=== PATIENT | female | born 1960 | race Caucasian/White ===

== ENCOUNTER 2017-06-11 13:26 | Emergency (ER) | payer BC, OTHER ==
[2017-06-11 13:35] VITALS: BP 148/92; PULSE 86; TEMP 97.8; BMI 23.0
--- NOTE | 2017-06-11 14:19 | PDOC ---
History of Present Illness - General History Source: Patient, Old Records Exam Limitations: No Limitations - History of Present Illness Initial Comments: 06/11/17 15:32 The patient is a 57 year old female with no significant past medical history who presents to the emergency department today with dizziness for 3 hours and chest pain for 2 days. The patient states the she was at work when she suddenly became dizzy. She notes that she laid down to alleviate symptoms with minimal relief of symptoms. The patient was unable to describe her dizziness but note that is was not room spinning in nature. The patient describes her chest pain intermittent heaviness in sensation accompanied by palpitations. She denies any shortness of breath, fever, cough, nausea, dizziness, headache, or cold symptoms <Nato Hair - Last Filed: 06/11/17 15:47> - History of Present Illness Initial Comments: 06/11/17 16:56 Physical exam: Alert and oriented well-developed well-nourished no acute distress cheerful and cooperative Afebrile, vital signs normal PERRLA 4 mm, fundi benign, ENT clear Neck supple without bruit mass or nodes Chest clear CV irregularly irregular without murmur rub or gallop pulses full and symmetric no JVD or edema 70/m Abdomen soft nontender without mass or organomegaly Neurological C2 to 12 intact. Strength full and symmetric. No focal sensory or motor deficits. Gait with slight ataxia for several seconds before stabilizing. No nystagmus. Symptoms are aggravated with rapid change of position and head movement Impression: Vestibular irritation, labyrinthitis. No sign of acute neurological or cardiac event Plan: EKG, CBC and chemistries, trial of meclizine, and observation <Sunny Almaraz - Last Filed: 06/11/17 17:00> - General Chief Complaint: Lightheaded Stated Complaint: SUDDEN ONSET OF DIZZINESS Time Seen by Provider: 06/11/17 13:32 Past History <Nato Hair - Last Filed: 06/11/17 15:47> - Past Medical History COPD: No HTN: Yes (DURING ) - Suicide/Smoking/Psychosocial Hx Smoking Status: No Smoking History: Never smoked Number of Cigarettes Smoked Daily: 0 Information on smoking cessation initiated: No Hx Alcohol Use: No Drug/Substance Use Hx: No Substance Use Type: None <Sunny Almaraz - Last Filed: 06/11/17 17:00> - Past Medical History Allergies/Adverse Reactions: Allergies Allergy/AdvReac Type Severity Reaction Status Date / Time pecan nut Allergy Intermediate Verified 06/11/17 15:38 walnut Allergy Intermediate Verified 06/11/17 15:38 PECAN NUTS Allergy Intermediate Itching Uncoded 06/11/17 13:28 WALNUTS Allergy Intermediate Itching Uncoded 06/11/17 13:28 Home Medications: Ambulatory Orders Meclizine HCl [Antivert -] 25 mg PO TID PRN #20 tablet 06/11/17 Review of Systems - Review of Systems Able to Perform ROS?: Yes Comments:: 06/11/17 15:33 CONSTITUTIONAL: Absent: fever, no chills, no fatigue EYES: Absent: visual changes ENT: Absent: ear pain, no sore throat CARDIOVASCULAR: (+) Chest pain. Absent: no palpitations RESPIRATORY: Absent: cough, no SOB GI: Absent: abdominal pain, no nausea, no vomiting, no constipation, no diarrhea GENITOURINARY: Absent: dysuria, no frequency, no hematuria MUSCULOSKELETAL: Absent: back pain, no arthralgia, no myalgia NEURO: (+) Dizziness SKIN: Absent: rash <Nato Hair - Last Filed: 06/11/17 15:47> *Physical Exam - Vital Signs Last Vital Signs Temp Pulse Resp BP Pulse Ox 97.8 F 86 16 148/92 100 06/11/17 13:27 06/11/17 13:27 06/11/17 13:27 06/11/17 13:27 06/11/17 13:27 - Physical Exam Comments: 06/11/17 15:47 GENERAL: Well-appearing, well-nourished. No apparent distress. HEENT: Normocephalic, atraumatic. PERRL, EOM intact. CARDIOVASCULAR: (+) Normal S1, S2. Regular rate, Irregular rhythm PULMONARY: Clear to auscultation bilaterally. ABDOMEN: Soft, non-distended, non-tender. EXTREMITIES: Normal ROM in all four extremities. No gross deformities. SKIN: Warm, dry. No rash NEUROLOGICAL: No focal neurological deficits. <Nato Hair - Last Filed: 06/11/17 15:47> - Vital Signs Last Vital Signs Temp Pulse Resp BP Pulse Ox 97.8 F 86 16 148/92 100 06/11/17 13:27 06/11/17 13:27 06/11/17 13:27 06/11/17 13:27 06/11/17 13:27 <Sunny Almaraz - Last Filed: 06/11/17 17:00> ED Treatment Course - LABORATORY CBC & Chemistry Diagram: 06/11/17 15:21 <Nato Hair - Last Filed: 06/11/17 15:47> - LABORATORY CBC & Chemistry Diagram: 06/11/17 15:21 06/11/17 15:16 <Sunny Almaraz - Last Filed: 06/11/17 17:00> Medical Decision Making - Medical Decision Making 06/11/17 15:[address] Farideh jacques. No previous EKG available. <Nato Hair - Last Filed: 06/11/17 15:47> - Medical Decision Making 06/11/17 15:24 EKG reviewed: Sinus rhythm with frequent PACs. Mildly prolonged QT. Normal axes and no blocks. No ST-T wave changes. No old EKG for comparison. Our records as well as the records of PMD Dr. Palmer have no EKG. Symptoms are most consistent with an acute labyrinthitis. No sign of acute neurological event. Unlikely acute coronary syndrome but these will be investigated further. Trial of meclizine for symptoms. 06/11/17 16:58 Labwork including cardiac enzymes without significant abnormalities. Clinical presentation, as noted above, most consistent with labyrinthitis. Symptoms are completely resolved after trial of meclizine. PACs are probably the result of increased sympathetic tone, which should resolve with increased rest, stress reduction, and symptomatic alleviation. Discharged completely asymptomatic with her , steady of gait, to follow-up as needed ER, ENT, primary physician. <Sunny Almaraz - Last Filed: 06/11/17 17:00> *DC/Admit/Observation/Transfer - Attestations Scribe Attestion: 06/11/17 15:33 Documentation prepared by Nato Hair, acting as emergency medical technician basic for Sunny Almaraz MD. <Nato Hair - Last Filed: 06/11/17 15:47> - Discharge Dispostion Admit: No <Sunny Almaraz - Last Filed: 06/11/17 17:00> Diagnosis at time of Disposition: Labyrinthitis Qualifiers: Laterality: unspecified laterality Qualified Code(s): H83.09 - Labyrinthitis, unspecified ear - Discharge Dispostion Disposition: HOME Condition at time of disposition: Improved - Prescriptions Prescriptions: Meclizine HCl [Antivert -] 25 mg PO TID PRN #20 tablet PRN Reason: Vertigo - Referrals Referrals: César Lobo MD [Staff Physician] - - Patient Instructions Printed Discharge Instructions: DI for Labyrinthitis Additional Instructions: Rest, medication as directed. If symptoms worsen or additional symptoms develop , return to ER immediately. Otherwise follow-up with primary physician or ENT specialist. - Post Discharge Activity Forms/Work/School Notes: Back to Work
[2017-06-11] MEDS ORDERED: MECLIZINE HCL 25 MG TABLET (FP) PO ONE (15:15)
[2017-06-11 15:33] LABS: BASO % 2.3 % (0-2.0); EOS % 2.4 % (0-4.5); HEMATOCRIT 43.7 % (32.4-45.2); HEMOGLOBIN 14.4 GM/dl (10.7-15.3); MCH 30.7 pg (25.7-33.7); MCHC 32.8 g/dl (32.0-36.0); MEAN CELL VOLUME 93.3 fl (80-96); MEAN PLT VOLUME 8.3 fl (7.5-11.1); MONO % 9.2 % (3.8-10.2); NEUT % 58.1 % (42.8-82.8); PLATELET COUNT 250 K/MM3 (134-434); RBC 4.69 M/mm3 (3.60-5.2); RDW 12.7 % (11.6-15.6); WHITE BLOOD COUNT 5.2 K/mm3 (4.0-10.8)
[2017-06-11 15:48] LABS: ALBUMIN 4.3 g/dl (3.5-5.0); ALK PHOS 48 U/L (32-92); ANION GAP 6 (8-16); BILIRUBIN,TOTAL 0.6 mg/dl (0.2-1.0); BLOOD UREA NITROGEN 11 mg/dl (7-18); CALCIUM 9.1 mg/dl (8.4-10.2); CHLORIDE 106 mmol/L (98-107); CO2 25 mmol/L (22-28); GLUCOSE,RANDOM 95 mg/dl (74-106); POTASSIUM 3.6 mmol/L (3.5-5.1); SGOT/AST 20 U/L (10-42); SGPT/ALT 17 U/L (10-40); SODIUM 137 mmol/L (136-145); TOT PROT 7.8 g/dl (6.4-8.3)
[2017-06-11 16:09] LABS: CREATININE < 0.8 mg/dl (0.6-1.3)
[2017-06-11 16:30] LABS: PH,URINE 6.5 (4.5-8); URINE APPEARANCE Clear; URINE BILIRUBIN Negative (NEGATIVE); URINE BLOOD Negative (NEGATIVE); URINE GLUCOSE (UA) Negative (NEGATIVE); URINE KETONE Negative (NEGATIVE); URINE LEUK ESTERASE Negative (NEGATIVE); URINE NITRITE Negative (NEGATIVE); URINE PROTEIN Negative (NEGATIVE); URINE UROBILINOGEN 0.2 (0.2-1.0)
[2017-06-11 16:31] LABS: URINE COLOR YELLOW
--- NOTE | 2017-06-12 14:13 | EKG ---
Test Reason : Blood Pressure : / mmHG Vent. Rate : 068 BPM Atrial Rate : 068 BPM P-R Int : 170 ms QRS Dur : 090 ms QT Int : 458 ms P-R-T Axes : 059 047 054 degrees QTc Int : 487 ms SINUS RHYTHM WITH PREMATURE ATRIAL COMPLEXES PROLONGED QT ABNORMAL ECG NO PREVIOUS ECGS AVAILABLE Confirmed by FAHAD KAPLAN, STEFF ([id number]) on 06/12/2017 2:13:10 PM Referred By: DR SMALL Confirmed By:STEFF VÁSQUEZ MD
== END 2017-06-11 17:06 | disposition home or self-care (01) ==
LOC: FER 13:26
DX: H83.09 Labyrinthitis, unspecified ear (principal)
CPT/HCPCS: 36415; 80053; 81003; 82550; 83735; 84484; 85025; 93005; 99284-25